=== PATIENT | male | born 1995 | race Caucasian/White ===

== ENCOUNTER 2019-07-02 23:34 | Emergency (ER) | payer SELFPAY ==
[~2019-07-02] VITALS: Ht 185.4 cm; Wt 88.6 kg
[2019-07-02 23:46] VITALS: TEMP 98.1
[2019-07-03] MEDS ORDERED: AMOXICILLIN 8751 TAB PO (03:07)
[2019-07-03 03:46] VITALS: BP 139/85; PULSE 73
== END 2019-07-03 03:45 | disposition home or self-care (01) ==
LOC: COL.ER 23:34
DX: S51.011A Laceration without foreign body of right elbow, initial encounter (principal); R40.2410 Glasgow coma scale score 13-15, unspecified time; Z98.890 Other specified postprocedural states; V03.99XA Pedestrian with other conveyance injured in collision with car, pick-up truck or van, unspecified whether traffic or nontraffic accident, initial encounter

== ENCOUNTER → 2019-07-11 | Outpatient (CLI) | payer SELFPAY ==
[~2019-07-11] MED LIST: AMOXICILLIN 8751 TAB PO
[2019-07-11 12:33] VITALS: BP 131/70; PULSE 78; TEMP 98
== END ==
LOC: COL.ER 12:29
DX: S51.011D Laceration without foreign body of right elbow, subsequent encounter (principal); X58.XXXD Exposure to other specified factors, subsequent encounter